=== PATIENT | female | born 1970 | race Caucasian/White ===

== ENCOUNTER 2016-12-01 11:33 | Emergency (ER) | payer BC ==
[2016-12-01 11:41] VITALS: BP 129/76
[2016-12-01] MEDS ORDERED: Morphine INJ* 4 MG/ML 1 ML CARPUJECT IV ONE ×3 (11:52→12:19)
[2016-12-01] MEDS ORDERED: Ondansetron INJ* 2 MG/ML VIAL IV ONE (11:52)
[2016-12-01] MEDS ORDERED: NS 0.9% 1000 ML* 3,000 ML IV ONE (11:52)
[2016-12-01 12:06] LABS: Hematocrit 38 % (35-47); Hemoglobin 12.1 g/dl (12.0-16.0); Mean Corpuscular HGB Conc 32 g/dl (31-36); Mean Corpuscular Hemoglobin 27 pg (27-31); Mean Corpuscular Volume 84 fL (80-97); Mean Platelet Volume 9 um3 (7.4-10.4); Red Blood Count 4.54 10^6/ul (4.0-5.4); Red Cell Distribution Width 14 % (10.5-15); White Blood Count 12.3 10^3/ul (3.5-10.8)
[2016-12-01 12:21] LABS: Albumin 3.9 g/dL (3.2-5.2); BUN/Creatinine Ratio 13.6 (8-20); C Reactive Protein 22.34 mg/L (< 5.00); Calcium 9.3 mg/dL (8.6-10.3); EGFR African American 74.2 (>60); EGFR Non-African American 57.7 (>60); Globulin 3.2 g/dL (2-4); Potassium 4.3 mmol/L (3.5-5.0); Total Bilirubin 0.3 mg/dL (0.2-1.0); Total Protein 7.1 g/dL (6.4-8.9)
--- NOTE | 2016-12-01 12:57 | RAD ---
Indication: Right flank pain. CT of the abdomen and pelvis was performed without oral or IV contrast administration. Coronal and sagittal reconstructed images were obtained. The lung bases demonstrate no pleural fluid, nodules or masses. Heart is of normal size without evidence of pericardial effusion. Liver is normal in size. No focal lesions or intrahepatic ductal dilatation is noted. Gallbladder demonstrates no calcified gallstones. No pericholecystic fluid or wall thickening is noted. The spleen is normal in size. Common duct is not dilated. The pancreas demonstrates no mass or pancreatic duct dilatation. No adrenal lesions are noted. There is enlargement of the right kidney with mild right hydronephrosis. Perinephric infiltration of fat is noted in the right kidney. There is mildly dilated right ureter with a calculi in the proximal right ureter measuring up to 5 mm in greatest dimension. The calculi is at the L2-L3 level on the right. The remainder of the right ureter is otherwise unremarkable. The left kidney shows no hydronephrosis. Aorta and inferior vena cava are unremarkable. No retroperitoneal adenopathy is noted. No dilated bowel are noted. CT of the pelvis demonstrates no retroperitoneal or pelvic adenopathy. The [place] bladder is otherwise unremarkable with several phleboliths in pelvis. The visualized uterus and ovaries are grossly unremarkable. No hernias are noted. The bony structures are otherwise unremarkable. IMPRESSION: MODERATE DEGREE OF RIGHT HYDRONEPHROSIS WITH MILD PROXIMAL URETERAL DILATATION. A 5 MM CALCULI IS NOTED IN THE PROXIMAL RIGHT URETER AT THE L2-L3 LEVEL. SEVERAL PHLEBOLITHS ARE NOTED IN THE PELVIS.
[2016-12-01 13:33] LABS: Urine Bacteria Absent (Absent); Urine Bilirubin Negative (Negative); Urine Glucose Negative (Negative); Urine Nitrite Negative (Negative)
--- NOTE | 2016-12-01 15:26 | RAD ---
Indication: Right flank pain. Single view of the abdomen demonstrates calcification adjacent to the right L2 transverse process measuring 4 mm. This likely represents calculi identified on the CT. IMPRESSION: Calcification adjacent to the L2 spinous process on the right consistent with a ureteral calculi identified on CT.
--- NOTE | 2016-12-01 15:30 | ED ---
Fely Meneses Rebecca, scribed for Gustavo Johnson MD on 12/01/16 at 1153 . Abdominal Pain/Female - HPI Summary HPI Summary: Pt is a 46 y/o F who presents to ED c/o R flank pain. Pain began suddenly on Saturday (4 days ago) and has been intermittent since onset, with the current episode beginning today at 0830. Pain is discrete to the R flank without radiation, currently ranked 8/10 and characterized as clenching. Sx aggravated and alleviated by nothing. States that she cannot get comfortable. Additionally c/o vomiting. Denies rhinorrhea, sore throat, rash and pleurisy. Denies trauma. - History of Current Complaint Chief Complaint: EDFlankPain Stated Complaint: RT FLANK PAIN Hx Obtained From: Patient Onset/Duration: Sudden Onset, Lasting Days - 4 days, Still Present Timing: Intermittent Episode Lasting Severity Initially: Severe Severity Currently: Severe Pain Intensity: 8 Pain Scale Used: 0-10 Numeric Location: Flank - Right Radiates: No Character: Other: - Clenching Aggravating Factor(s): Nothing Alleviating Factor(s): Nothing Associated Signs and Symptoms: Positive: Vomiting Allergies/Adverse Reactions: Allergies Allergy/AdvReac Type Severity Reaction Status Date / Time No Known Allergies Allergy Verified 12/01/16 11:38 PMH/Surg Hx/FS Hx/Imm Hx Respiratory History: Reports: Hx Asthma - MILD ASTHMA GI History: Reports: Other GI Disorders - ULCERATIVE COLITIS, PARATHYROID ADENOMA Sensory History: Denies: Hx Contacts or Glasses, Hx Hearing Aid Opthamlomology History: Denies: Hx Contacts or Glasses - Cancer History Hx Chemotherapy: No Hx Radiation Therapy: No - Surgical History Surgery Procedure, Year, and Place: PARATHYROID ADENOMA REMOVAL - 2016 Infectious Disease History: No Infectious Disease History: Denies: Traveled Outside the [place] in Last 30 Days - Family History Known Family History: Positive: Other - Graves Disease (sister) - Social History Alcohol Use: Rare Substance Use Type: Reports: None Smoking Status (MU): Never Smoked Tobacco Review of Systems Negative: Sore Throat, Nasal Discharge Positive: Other - Denies pleurisy Positive: Abdominal Pain - R flank, Vomiting Negative: Rash All Other Systems Reviewed And Are Negative: Yes Physical Exam - Summary Physical Exam Summary: The patient is well-nourished in no acute distress and uncomfortable. The skin is warm and dry. Pt is pale. HEENT: The head is normocephalic and atraumatic. The pupils are equal and reactive. The conjunctivae are clear and without drainage. Nares are patent and without drainage. Mouth reveals dry mucous membranes and the throat is without erythema and exudate. The external ears are intact. The ear canals are patent and without drainage. The tympanic membranes are intact. Respiratory: Chest is non-tender. Lungs are clear to auscultation and breath sounds are symmetrical and equal. Cardiovascular: Hear is regular rate and rhythm. There is no murmur or rub auscultated. There is no peripheral edema and pulses are symmetrical and equal. Abdomen: The abdomen is soft and non-tender. Musculoskeletal: There is no back pain noted. Extremities are non-tender with full range of motion. There is good capillary refill. There is no peripheral edema or calf tenderness elicited. No CVA tenderness. Some right flank pain. Neurological: Patient is alert and oriented to person, place and time. The patient has symmetrical motor strength in all four extremities. Psychiatric: The patient has an appropriate affect and does not exhibit any anxiety or depression. Triage Information Reviewed: Yes Vital Signs On Initial Exam: Initial Vitals Temp Pulse Resp BP Pulse Ox 97.9 F 68 16 129/76 100 12/01/16 11:38 12/01/16 11:38 12/01/16 11:38 12/01/16 11:38 12/01/16 11:38 Vital Signs Reviewed: Yes Diagnostics - Vital Signs Vital Signs Temp Pulse Resp BP Pulse Ox 12/01/16 11:38 97.9 F 68 16 129/76 100 - Laboratory Lab Results: Lab Results 12/01/16 12/01/16 12/01/16 Range/Units 11:53 11:53 11:53 WBC 12.3 H (3.5-10.8) 10^3/ul RBC 4.54 (4.0-5.4) 10^6/ul Hgb 12.1 (12.0-16.0) g/dl Hct 38 (35-47) % MCV 84 (80-97) fL MCH 27 (27-31) pg MCHC 32 (31-36) g/dl RDW 14 (10.5-15) % Plt Count 203 (150-450) 10^3/ul MPV 9 (7.4-10.4) um3 Neut % (Auto) 85.0 H (38-83) % Lymph % (Auto) 10.7 L (25-47) % [place] % (Auto) 3.3 (1-9) % Eos % (Auto) 0.5 (0-6) % Baso % (Auto) 0.5 (0-2) % Absolute Neuts (auto) 10.5 H (1.5-7.7) 10^3/ul Absolute Lymphs (auto) 1.3 (1.0-4.8) 10^3/ul Absolute Monos (auto) 0.4 (0-0.8) 10^3/ul Absolute Eos (auto) 0.1 (0-0.6) 10^3/ul Absolute Basos (auto) 0.1 (0-0.2) 10^3/ul Absolute Nucleated RBC 0.01 10^3/ul Nucleated RBC % 0.1 Sodium 136 (133-145) mmol/L Potassium 4.3 (3.5-5.0) mmol/L Chloride 106 (101-111) mmol/L Carbon Dioxide 23 (22-32) mmol/L Anion Gap 7 (2-11) mmol/L BUN 14 (6-24) mg/dL Creatinine 1.03 H (0.51-0.95) mg/dL Est GFR ( Amer) 74.2 (>60) Est GFR (Non-Af Amer) 57.7 (>60) BUN/Creatinine Ratio 13.6 (8-20) Glucose 114 H (70-100) mg/dL Lactic Acid 1.3 (0.5-2.0) mmol/L Calcium 9.3 (8.6-10.3) mg/dL Total Bilirubin 0.30 (0.2-1.0) mg/dL AST 13 (13-39) U/L ALT 8 (7-52) U/L Alkaline Phosphatase 29 L (34-104) U/L C-Reactive Protein 22.34 H (< 5.00) mg/L Total Protein 7.1 (6.4-8.9) g/dL Albumin 3.9 (3.2-5.2) g/dL Globulin 3.2 (2-4) g/dL Albumin/Globulin Ratio 1.2 (1-3) Lipase 24 (11.0-82.0) U/L Urine Color Urine Appearance Urine pH (5-9) Ur Specific [place] (1.010-1.030) Urine Protein (Negative) Urine Ketones (Negative) Urine Blood (Negative) Urine Nitrate (Negative) Urine Bilirubin (Negative) Urine Urobilinogen (Negative) Ur Leukocyte Esterase (Negative) Urine WBC (Auto) (Absent) Urine RBC (Auto) (Absent) Ur Squamous Epith Cells (Absent) Urine Bacteria (Absent) Urine Glucose (Negative) Urine Ascorbic Acid (Negative) 12/01/16 Range/Units 13:20 WBC (3.5-10.8) 10^3/ul RBC (4.0-5.4) 10^6/ul Hgb (12.0-16.0) g/dl Hct (35-47) % MCV (80-97) fL MCH (27-31) pg MCHC (31-36) g/dl RDW (10.5-15) % Plt Count (150-450) 10^3/ul MPV (7.4-10.4) um3 Neut % (Auto) (38-83) % Lymph % (Auto) (25-47) % [place] % (Auto) (1-9) % Eos % (Auto) (0-6) % Baso % (Auto) (0-2) % Absolute Neuts (auto) (1.5-7.7) 10^3/ul Absolute Lymphs (auto) (1.0-4.8) 10^3/ul Absolute Monos (auto) (0-0.8) 10^3/ul Absolute Eos (auto) (0-0.6) 10^3/ul Absolute Basos (auto) (0-0.2) 10^3/ul Absolute Nucleated RBC 10^3/ul Nucleated RBC % Sodium (133-145) mmol/L Potassium (3.5-5.0) mmol/L Chloride (101-111) mmol/L Carbon Dioxide (22-32) mmol/L Anion Gap (2-11) mmol/L BUN (6-24) mg/dL Creatinine (0.51-0.95) mg/dL Est GFR ( Amer) (>60) Est GFR (Non-Af Amer) (>60) BUN/Creatinine Ratio (8-20) Glucose (70-100) mg/dL Lactic Acid (0.5-2.0) mmol/L Calcium (8.6-10.3) mg/dL Total Bilirubin (0.2-1.0) mg/dL AST (13-39) U/L ALT (7-52) U/L Alkaline Phosphatase (34-104) U/L C-Reactive Protein (< 5.00) mg/L Total Protein (6.4-8.9) g/dL Albumin (3.2-5.2) g/dL Globulin (2-4) g/dL Albumin/Globulin Ratio (1-3) Lipase (11.0-82.0) U/L Urine Color Yellow Urine Appearance Clear Urine pH 6.0 (5-9) Ur Specific [place] 1.024 (1.010-1.030) Urine Protein Negative (Negative) Urine Ketones Trace H (Negative) Urine Blood Negative (Negative) Urine Nitrate Negative (Negative) Urine Bilirubin Negative (Negative) Urine Urobilinogen Negative (Negative) Ur Leukocyte Esterase Trace H (Negative) Urine WBC (Auto) Trace(0-5/hpf) (Absent) Urine RBC (Auto) 2+(6-10/hpf) H (Absent) Ur Squamous Epith Cells Present H (Absent) Urine Bacteria Absent (Absent) Urine Glucose Negative (Negative) Urine Ascorbic Acid * H (Negative) Result Diagrams: 12/01/16 11:53 12/01/16 11:53 Lab Statement: Any lab studies that have been ordered have been reviewed, and results considered in the medical decision making process. - Radiology KUB Radiology Interpretation Completed By: ED Physician - Preliminary reading: RUQ shows a R renal calculus about 3 mm in diameter - CT CT Abd/Pel CT Interpretation Completed By: Radiologist - MODERATE DEGREE OF RIGHT HYDRONEPHROSIS WITH MILD PROXIMAL URETERAL DILATATION. A 5 MM CALCULI IS NOTED IN THE PROXIMAL RIGHT URETER AT THE L2-L3 LEVEL. SEVERAL PHLEBOLITHS ARE NOTED IN THE PELVIS. Abdominal Pain Fem Course/Dx - Course Course Of Treatment: Pt is a 46 y/o F who presents to ED with a CC of R flank pain intermittently for 4 days. Additionally c/o vomiting. Denies rhinorrhea, sore throat, rash, pleurisy or trauma. CT Abd/Pel reveals a MODERATE DEGREE OF RIGHT HYDRONEPHROSIS WITH MILD PROXIMAL URETERAL DILATATION. A 5 MM CALCULI IS NOTED IN THE PROXIMAL RIGHT URETER AT THE L2-L3 LEVEL. SEVERAL PHLEBOLITHS ARE NOTED IN THE PELVIS. Discussed care of patient with Dr. Guardado, urology, who will evaluate pt in the ED. Pt will be d/c to home with a followup with Dr. Guardado. - Diagnoses Differential Diagnosis: Positive: Renal Colic, Urinary Tract Infection, Other - back pain Provider Diagnoses: Right ureteral calculus, Hydronephrosis with ureteral calculus - Provider Notifications Discussed Care Of Patient With: Dr. Guardado, urology, who will evaluate pt in the ED. Upon evaluation, Dr. Guardado would like a KUB of the pt. Time Discussed With Above Provider: 13:34 Discharge - Discharge Plan Condition: Stable Disposition: HOME Prescriptions: Ondansetron ODT TAB* [Zofran Odt TAB*] 4 mg PO Q8H PRN #20 tab.odt PRN Reason: nausea Oxycodone W/ Acetaminophen [Percocet 7.5-325 mg (NF)] 1 tab PO Q6H PRN #20 tab MDD 4 PRN Reason: pain Tamsulosin CAP* [Flomax CAP*] 0.4 mg PO DAILY #30 cap Patient Education Materials: Kidney Stones (ED) Referrals: Phi Guardado MD [Medical Doctor] - 2 Days (Follow up with Dr. Guardado within the next 2 days. ) The documentation as recorded by the Fely bhat Rebecca accurately reflects the service I personally performed and the decisions made by , Gustavo Johnson MD.
--- NOTE | 2016-12-01 18:01 | CONS ---
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 There was no associated flank or abdominal pain and no voiding symptoms. Two days ago, she had some right flank pain that lasted for about 2 hours and resolved spontaneously. This morning, she had an episode of severe right flank pain radiating to the right lower quadrant associated with nausea. She did not have any fever or chills. Because of the severity of the pain, she presented to the emergency room for evaluation. She had a noncontrast CT of the abdomen and pelvis which showed a 4.5-mm calculus just distal to the right ureteropelvic junction associated with mild hydronephrosis. There were no other abnormalities noted and no other calculi noted in either kidney. A KUB was then done and it confirmed the presence of a 4-mm calculus in the proximal right ureter at the level of L2-L3. No other abnormal calcifications were noted. PAST MEDICAL HISTORY: Relevant for history of ulcerative colitis that has not been active. She had her routine colonoscopy a few days ago and the study was normal. Her past medical history is also relevant for a parathyroid adenoma that was associated with hypercalcemia below 11. She had surgical removal of the adenoma and she has done very well. Past medical history is otherwise completely negative. She is in good health. ALLERGIES: She denies any allergies to medications. PHYSICAL EXAM: Normal vital signs and she is afebrile. She looks comfortable and pain-free Heart: Regular and rhythmic Lungs: Clear Abdomen: soft, no tenderness and no CVA tenderness. LABORATORY DATA: Her lab work in the emergency room showed a white count of 12, 300 with 85% neutrophils. Her serum creatinine was 1.0 with a BUN of 14. Urinalysis showed +2 blood, negative otherwise. IMPRESSION: A 4-mm calculus in the proximal right ureter just distal to the ureteropelvic junction associated with minimal degree of hydronephrosis and with no signs of urinary tract infection, with the pain well controlled on pain medication. PLAN: I discussed the options of management including continued conservative management with pain medication as needed and starting tamsulosin. The other option is for stent placement and that would be followed by shock wave lithotripsy of the renal calculus. Considering the above, I recommended the conservative management with tamsulosin and Percocet as needed for pain. She is to strain her urine. She is to call back if the pain becomes very severe or she develops any fever or persistent nausea and vomiting. CC: Dr. Duff * [id number]/CPS #: [id number] MTDD
== END 2016-12-01 15:46 | disposition home or self-care (01) ==
LOC: ED 11:33
DX: N13.2 Hydronephrosis with renal and ureteral calculous obstruction (principal); R10.84 Generalized abdominal pain; R11.10 Vomiting, unspecified
CPT/HCPCS: 36415; 74000; 74176; 80053; 81003; 81015; 83605; 83690; 85025; 86140; 87086; 96374; 96375; 96376; 99283; J2270; J2405

== ENCOUNTER 2016-12-03 08:23 | Day surgery (SDC) | payer BC ==
--- NOTE | 2016-12-03 08:56 | RAD ---
HISTORY: Right renal calculus COMPARISONS: December 01, 2016 VIEWS: Frontal views of the abdomen. FINDINGS: BOWEL: There is a nonspecific bowel gas pattern, with nondilated small bowel gas noted. CALCULI: There is a 0.4 cm calculus of the right hemiabdomen, stable from the previous examination BONES AND SOFT TISSUES: Degenerative changes are noted at L4-L5 OTHER FINDINGS: The lung bases are clear. There is no subphrenic gas. IMPRESSION: STABLE RIGHT NEPHROLITHIASIS
[2016-12-03] MEDS ORDERED: Buffered Lidocaine 1% SYR 3ML* 3 ML/SYR SYRINGE ONE (09:27)
[2016-12-03] MEDS ORDERED: Iohexol 180 (CONTRAST) 10 ML SDV IV ONE (09:31)
[2016-12-03] MEDS ORDERED: Sodium Citrate/Citric Acid* 15 ML UDC PO ONE (09:47)
[2016-12-03] MEDS ORDERED: fentaNYL* 50 MCG/ML 2 ML VIAL (100 MCG VIAL) IV PRN (09:48)
[2016-12-03 09:55] LABS: Manual Entry Verification HAN0055; UR Preg Internal Control QC Line Present
[2016-12-03] MEDS ORDERED: Sodium Citrate/Citric Acid* 15 ML UDC ONE (09:58)
[2016-12-03] MEDS ORDERED: cefTRIAXone VIAL(*) 1,000 MG in NS 0.9% 50 ML* 50 ML IVPB ONE (10:00)
[2016-12-03] MEDS ORDERED: Propofol* 10 MG/ML 20 ML BTL IV PUSH ONE (10:04)
[2016-12-03] MEDS ORDERED: Midazolam* 1 MG/ML 2 ML VIAL (2 MG) ONE (10:04)
[2016-12-03] MEDS ORDERED: Lidocaine 2% MPF* 2 ML VIAL ONE (10:04)
[2016-12-03] MEDS ORDERED: fentaNYL* 50 MCG/ML 2 ML VIAL (100 MCG VIAL) ONE (10:04)
[2016-12-03] MEDS ORDERED: Ondansetron INJ* 2 MG/ML VIAL ONE (12:34)
[2016-12-03 12:47] VITALS: BP 120/71
[2016-12-03] MEDS ORDERED: oxyCODONE/Acetamin 5/325 MG* TAB ONE (12:57)
[2016-12-03] MEDS ORDERED: Oxybutynin TAB* 5 MG ONE (13:13)
--- NOTE | 2016-12-04 01:42 | OP ---
DATE OF OPERATION: 12/03/16 [facility] DATE OF : 70 SURGEON: Phi Guardado MD ANESTHESIOLOGIST: Dr. Nick Hickman. ANESTHESIA: General. PRE-OP DIAGNOSIS: Proximal right ureteral calculus (5 mm). POST-OP DIAGNOSIS: Proximal right ureteral calculus (5 mm). OPERATIVE PROCEDURE: 1. Cystoscopy. 2. Right retrograde pyelography and placement of right ureteral stent (6-[place] ). 3. Shockwave lithotripsy of right renal calculus (5 mm). 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 She was managed conservatively. However, her renal colics have been recurring the last two days. KUB done today showed the radiopaque calculus to be still in the same position. Because of the above history, the above procedure was advised and accepted. PATHOLOGY AT FLUOROSCOPY: A 5 mm radiopaque calculus was noted at the level of the right ureteropelvic junction. No other abnormal calcifications were seen. At cystoscopy, the bladder mucosa looked normal. There were no suspicious bladder lesions seen. The ureteral orifices looked normal. Upon right retrograde pyelography, there was partial impaction of the calculus in the proximal ureter. A [id number] right hydronephrosis was noted. There was hydronephrotic drip after the stent placement. The stone migrated into the renal pelvis after the stent placement. DESCRIPTION OF PROCEDURE: After successful general anesthesia, the patient was placed in the dorsal lithotomy position and was prepped and draped for cystoscopy. Cystoscopy was performed. The bladder was inspected and the above findings were noted. A flexible tip guidewire was then introduced into the right orifice and positioned in the area of the renal pelvis. There was slight resistance to the introduction of the wire at the level of the stone. A size 5-[place] open-ended catheter was then fed on top of the guidewire and this pushed the stone into the renal pelvis. Retrograde pyelography was performed. A size 6-[place] stent was then placed with the proximal end coiling in the renal pelvis and the distal end coiling inside the bladder. The patient was then placed in the supine position. Fluoroscopy showed the calculus within the proximal loop of the stent. Shockwave lithotripsy was then performed. The position of the generator was adjusted to have the stone in the focus of the shockwaves. The total of 1,800 shocks were then delivered at the rate of 90 shocks per minute. A 3 minutes break was taken after the initial 300 shocks. The proper positioning and fragmentation of the stone was monitored periodically. At the completion of the treatment, there seemed to be partial fragmentation of the stone. However, the stone could still be visualized. The patient tolerated the procedure well and left the operating room in good condition. The plan is to see the patient in the office next week. An ultrasound will be done and decision will be made regarding the stent removal. CC: Dr. Duff* [id number]/CPS #: [id number] MTDD
== END 2016-12-03 14:14 | disposition home or self-care (01) ==
LOC: IMG 08:23 → OR 08:23 → EDSTATUS 08:38 → OR 14:14
PROVIDERS: ATTEND Urology
DX: N13.2 Hydronephrosis with renal and ureteral calculous obstruction (principal); J45.909 Unspecified asthma, uncomplicated; K51.90 Ulcerative colitis, unspecified, without complications
CPT/HCPCS: 36415; 74000; 81025; 85610; A9270-GY; C1876; J0696; J2250; J2405; J2704; J3010